=== PATIENT | female | born 1990 | race Caucasian/White ===

== ENCOUNTER 2019-03-08 13:37 | Observation (INO) ==
[2019-03-08] MEDS ORDERED: Isovue-370 500 ML BOTTLE IVP ONE (14:07)
[2019-03-08] MEDS ORDERED: Piperacillin/Tazobactam 3.375 GM in 0.9 % Sodium Chloride Mini Bag 100 ML IVPB ONE (14:08)
[2019-03-08] MEDS ORDERED: 0.9 % Sodium Chloride 1,000 ML IVC STA (14:10)
[2019-03-08 14:23] LABS: Basophils % 0.6 %; Eosinophils # 0.2 K/mcL (0.0-0.6); Eosinophils % 3.7 %; Hematocrit 36.3 % (35.3-44.9); Hemoglobin 10.8 g/dL (11.5-15.4); Immature Granulocytes % 0.2 % (0-4); Lymphocytes # 1.9 K/mcL (0.6-4.6); Mean Corpuscular HGB Conc 29.8 g/dL (31.6-35.5); Mean Corpuscular Hemoglobin 23.2 pg (28.0-33.3); Mean Corpuscular Volume 77.9 fL (83.0-100.0); Mean Platelet Volume 9.6 fL (9.4-12.4); Monocytes # 0.4 K/mcL (0.0-1.3); Monocytes % 7.8 %; Neutrophils # 2.4 K/mcL (1.6-8.9); Platelet Count 239 K/mcL (140-400); Red Blood Count 4.66 M/mcL (3.82-4.97); Red Cell Distribution Width 18.2 % (11.5-14.5); Segmented Neutrophils % 48.7 %; White Blood Count 4.9 K/mcL (4.3-11.1)
[2019-03-08 14:51] LABS: Alanine Aminotransferase 331 Units/L (7-52); Albumin 3.8 g/dL (3.5-5.7); Albumin/Globulin Ratio 1.5 (1.1-2.2); Alkaline Phosphatase 115 Units/L (34-104); Aspartate Amino Transferase 205 Units/L (13-39); BUN/Creatinine Ratio 15 (6-26); Bilirubin,Total 0.3 mg/dL (0.3-1.0); Blood Urea Nitrogen 13 mg/dL (6-20); C-Reactive Protein < 5 mg/L (Less than 10); Calcium 8.8 mg/dL (8.6-10.3); Carbon Dioxide 28 mEq/L (23-29); Chloride 106 mEq/L (98-107); Globulin 2.5 g/dL (2.4-3.5); Glucose 74 mg/dL (70-105); Osmolality,Calculated 287 (280-300); Potassium 3.6 mEq/L (3.5-5.1); Sodium 139 mEq/L (136-145); Total Protein 6.3 g/dL (6.4-8.9); eGFR For African Americans > 60 (> 60); eGFR For Non-African Americans > 60 (> 60)
[2019-03-08 16:20] LABS: Hepatitis B Surface Antigen Nonreactive (Nonreactive)
[2019-03-08 16:49] LABS: Hepatitis B Core IgM Nonreactive (Nonreactive)
[2019-03-08 16:50] LABS: Hepatitis C Virus Antibody Nonreactive (Nonreactive)
[2019-03-08 16:51] LABS: Hepatitis A Antibody IgM Nonreactive (Nonreactive)
[2019-03-08] MEDS ORDERED: *HR* OxyCODONE Immed Rel 5 MG TABLET PO PRN (17:08)
[2019-03-08] MEDS ORDERED: Ondansetron ODT 4 MG TAB.RAPDIS SL PRN (17:08)
[2019-03-08] MEDS ORDERED: Ibuprofen 400 MG TABLET PO PRN (17:08)
[2019-03-08] MEDS ORDERED: Naloxone 0.4 MG/ML INJ IVP PRN (17:08)
[2019-03-08] MEDS ORDERED: Td (TENIVAC) Vaccine 0.5 ML VIAL IM ONE (17:33)
[2019-03-08] MEDS ORDERED: *HR* Heparin 5,000 UNIT/ML VIAL SQ SCH (18:00)
[2019-03-08 20:18] VITALS: BP 126/82
[2019-03-08] MEDS ORDERED: Aminoglycoside Consult 1 EACH MC ONE (20:54)
[2019-03-09] MEDS ORDERED: Piperacillin/Tazobactam 3.375 GM in 0.9 % Sodium Chloride Mini Bag 100 ML IVPB SCH
[2019-03-09 02:32] LABS: HIV-1&2 Antibody & p24 Ag Nonreactive (Nonreactive)
[2019-03-09] MEDS ORDERED: Nicotine 21 MG PATCH.TD24 TD SCH (09:00)
== END 2019-03-08 20:55 | disposition left against medical advice (07) ==
LOC: EMEROOARM 13:37 → 3ANU 13:37
PROVIDERS: ADMIT Internal Medicine; ATTEND Internal Medicine

== ENCOUNTER 2019-03-16 21:09 | Observation (INO) ==
[2019-03-16 22:36] LABS: Basophils % 0.6 %; Eosinophils # 0.1 K/mcL (0.0-0.6); Eosinophils % 1.6 %; Hematocrit 37.1 % (35.3-44.9); Hemoglobin 11.7 g/dL (11.5-15.4); Immature Granulocytes % 0.2 % (0-4); Lymphocytes # 1.5 K/mcL (0.6-4.6); Lymphocytes % 28.7 %; Mean Corpuscular HGB Conc 31.5 g/dL (31.6-35.5); Mean Corpuscular Hemoglobin 23.4 pg (28.0-33.3); Mean Corpuscular Volume 74.2 fL (83.0-100.0); Mean Platelet Volume 9.2 fL (9.4-12.4); Monocytes # 0.5 K/mcL (0.0-1.3); Monocytes % 9.6 %; Neutrophils # 3.1 K/mcL (1.6-8.9); Platelet Count 249 K/mcL (140-400); Red Cell Distribution Width 18.6 % (11.5-14.5); Segmented Neutrophils % 59.3 %; White Blood Count 5.1 K/mcL (4.3-11.1)
[2019-03-16 22:57] LABS: Alanine Aminotransferase 359 Units/L (7-52); Albumin 3.7 g/dL (3.5-5.7); Albumin/Globulin Ratio 1.3 (1.1-2.2); Alkaline Phosphatase 166 Units/L (34-104); Aspartate Amino Transferase 158 Units/L (13-39); BUN/Creatinine Ratio 15 (6-26); Bilirubin,Direct 0.1 mg/dL (0.0-0.2); Bilirubin,Indirect 0.4 mg/dL (0.0-1.0); Bilirubin,Total 0.5 mg/dL (0.3-1.0); Blood Urea Nitrogen 14 mg/dL (6-20); C-Reactive Protein < 5 mg/L (Less than 10); Calcium 8.8 mg/dL (8.6-10.3); Carbon Dioxide 28 mEq/L (23-29); Chloride 106 mEq/L (98-107); Globulin 2.8 g/dL (2.4-3.5); Glucose 90 mg/dL (70-105); Osmolality,Calculated 288 (280-300); Potassium 4.2 mEq/L (3.5-5.1); Sodium 139 mEq/L (136-145); Total Protein 6.5 g/dL (6.4-8.9); eGFR For African Americans > 60 (> 60); eGFR For Non-African Americans > 60 (> 60)
[2019-03-16] MEDS ORDERED: 0.9 % Sodium Chloride 1,000 ML IVC ONE (23:38)
[2019-03-16] MEDS ORDERED: Piperacillin/Tazobactam 3.375 GM in 0.9 % Sodium Chloride Mini Bag 100 ML IVPB ONE (23:38)
[2019-03-17] MEDS ORDERED: Naloxone 0.4 MG/ML INJ IVP PRN (06:00)
[2019-03-17] MEDS ORDERED: Nicotine 2 MG GUM BC PRN (06:00)
[2019-03-17 07:20] LABS: Basophils % 0.8 %; Eosinophils # 0.1 K/mcL (0.0-0.6); Eosinophils % 2.7 %; Hematocrit 33.9 % (35.3-44.9); Hemoglobin 10.7 g/dL (11.5-15.4); Immature Granulocytes % 0.2 % (0-4); Lymphocytes # 1.7 K/mcL (0.6-4.6); Lymphocytes % 34.5 %; Mean Corpuscular HGB Conc 31.6 g/dL (31.6-35.5); Mean Corpuscular Hemoglobin 23.5 pg (28.0-33.3); Mean Corpuscular Volume 74.3 fL (83.0-100.0); Mean Platelet Volume 9.5 fL (9.4-12.4); Monocytes # 0.4 K/mcL (0.0-1.3); Monocytes % 8.6 %; Neutrophils # 2.6 K/mcL (1.6-8.9); Platelet Count 229 K/mcL (140-400); Red Blood Count 4.56 M/mcL (3.82-4.97); Red Cell Distribution Width 18.4 % (11.5-14.5); Segmented Neutrophils % 53.2 %; White Blood Count 4.9 K/mcL (4.3-11.1)
[2019-03-17 07:31] LABS: Prothrombin Time 11.9 Seconds (9.4-12.1)
[2019-03-17 07:41] LABS: % Iron Saturation 5 % (15-50); Alanine Aminotransferase 304 Units/L (7-52); Albumin 3.3 g/dL (3.5-5.7); Albumin/Globulin Ratio 1.4 (1.1-2.2); Alkaline Phosphatase 139 Units/L (34-104); Aspartate Amino Transferase 146 Units/L (13-39); BUN/Creatinine Ratio 18 (6-26); Bilirubin,Total 0.5 mg/dL (0.3-1.0); Blood Urea Nitrogen 14 mg/dL (6-20); Carbon Dioxide 24 mEq/L (23-29); Chloride 108 mEq/L (98-107); Globulin 2.4 g/dL (2.4-3.5); Glucose 100 mg/dL (70-105); Iron 24 mcg/dL (50-170); Magnesium 1.9 mg/dL (1.6-2.6); Osmolality,Calculated 291 (280-300); Phosphorous 3.7 mg/dL (2.7-4.5); Potassium 4.2 mEq/L (3.5-5.1); Sodium 140 mEq/L (136-145); Total Protein 5.7 g/dL (6.4-8.9); Transferrin 361 mg/dL (203-362); eGFR For African Americans > 60 (> 60); eGFR For Non-African Americans > 60 (> 60)
[2019-03-17] MEDS: Piperacillin/Tazobactam 3.375 GM in 0.9 % Sodium Chloride Mini Bag 100 ML IVP SCH ×3 (07:47→23:22)
[2019-03-17 07:57] LABS: Ferritin 9 ng/mL (10-120)
[2019-03-17] MEDS: Nicotine 14 MG PATCH.TD24 TD SCH (09:20)
[2019-03-17] MEDS ORDERED: Ketorolac 15 MG/ML VIAL IVP PRN ×2 (10:05→10:54)
[2019-03-17] MEDS ORDERED: Acetaminophen 325 MG TABLET PO PRN (10:53)
[2019-03-17] MEDS ORDERED: *HR* HYDROcodone/Acet 10/325 mg TABLET PO PRN (10:54)
[2019-03-17] MEDS ORDERED: Sennosides/Docusate Sodium TABLET PO PRN (11:20)
[2019-03-17 12:37] LABS: Amphetamine Screen,Urine Positive ng/mL (Cutoff=1000); Barbiturate Screen,Urine Negative ng/mL (Cutoff=200); Benzodiazepines Screen,Urine Negative ng/mL (Cutoff=200); Cannabinoid Screen,Urine Negative ng/mL (Cutoff = 50); Cocaine Screen,Urine Negative ng/mL (Cutoff= 300); Opiate Screen,Urine Negative ng/mL (Cutoff=300); Phencyclidine Screen,Urine Negative ng/mL (Cutoff=25)
[2019-03-17] MEDS ORDERED: *HR* OxyCODONE/APAP 10/325 TABLET PO PRN (14:37)
[2019-03-17] MEDS: Ketorolac 15 MG/ML VIAL IVP SCH ×3 (18:08→23:22)
[2019-03-17] MEDS: Ondansetron 4 MG/2 ML VIAL IVP PRN (20:11)
[2019-03-18] MEDS: *HR* Heparin 5,000 UNIT/ML VIAL SQ SCH ×2 (04:57→17:48)
[2019-03-18] MEDS: Ketorolac 15 MG/ML VIAL IVP SCH ×3 (07:09→17:49)
[2019-03-18 07:15] LABS: Basophils # 0.1 K/mcL (0.0-0.2); Eosinophils # 0.2 K/mcL (0.0-0.6); Eosinophils % 3.7 %; Hematocrit 35.5 % (35.3-44.9); Hemoglobin 10.6 g/dL (11.5-15.4); Lymphocytes # 2.4 K/mcL (0.6-4.6); Lymphocytes % 49.3 %; Mean Corpuscular HGB Conc 29.9 g/dL (31.6-35.5); Mean Corpuscular Hemoglobin 23.1 pg (28.0-33.3); Mean Corpuscular Volume 77.5 fL (83.0-100.0); Mean Platelet Volume 9.9 fL (9.4-12.4); Monocytes # 0.4 K/mcL (0.0-1.3); Monocytes % 8.6 %; Neutrophils # 1.8 K/mcL (1.6-8.9); Platelet Count 225 K/mcL (140-400); Red Blood Count 4.58 M/mcL (3.82-4.97); Red Cell Distribution Width 18.4 % (11.5-14.5); Segmented Neutrophils % 37.4 %; White Blood Count 4.9 K/mcL (4.3-11.1)
[2019-03-18 07:37] LABS: Alanine Aminotransferase 261 Units/L (7-52); Albumin 3.2 g/dL (3.5-5.7); Albumin/Globulin Ratio 1.5 (1.1-2.2); Alkaline Phosphatase 127 Units/L (34-104); Aspartate Amino Transferase 122 Units/L (13-39); BUN/Creatinine Ratio 16 (6-26); Bilirubin,Total 0.3 mg/dL (0.3-1.0); Blood Urea Nitrogen 14 mg/dL (6-20); Calcium 7.9 mg/dL (8.6-10.3); Carbon Dioxide 25 mEq/L (23-29); Chloride 107 mEq/L (98-107); Chol/HDL Ratio 2.6 (0-4.9); Cholesterol 127 mg/dL (< 200); Globulin 2.2 g/dL (2.4-3.5); Glucose 95 mg/dL (70-105); HDL Cholesterol 48 mg/dL (40-59); LDL Cholesterol,Calculated 70 mg/dL (0-99); Osmolality,Calculated 284 (280-300); Potassium 4.1 mEq/L (3.5-5.1); Sodium 137 mEq/L (136-145); Total Protein 5.4 g/dL (6.4-8.9); Triglycerides 47 mg/dL (< 150); eGFR For African Americans > 60 (> 60); eGFR For Non-African Americans > 60 (> 60)
[2019-03-18] MEDS: Nicotine 14 MG PATCH.TD24 TD SCH (07:52)
[2019-03-18 08:00] LABS: Hepatitis B Surface Antigen Nonreactive (Nonreactive)
[2019-03-18 08:29] LABS: Hepatitis B Core IgM Nonreactive (Nonreactive)
[2019-03-18 08:31] LABS: Hepatitis A Antibody IgM Nonreactive (Nonreactive)
[2019-03-18] MEDS: Piperacillin/Tazobactam 3.375 GM in 0.9 % Sodium Chloride Mini Bag 100 ML IVP SCH ×2 (08:58→16:39)
[2019-03-18] MEDS: Ondansetron 4 MG/2 ML VIAL IVP PRN (09:45)
[2019-03-18 10:05] LABS: Hepatitis C Virus Antibody Reactive (Nonreactive)
[2019-03-18] MEDS ORDERED: Bupivacaine/Clonidine Syringe 20 ML, Syringe LUER-LOK 1 EACH TP ONE (10:05)
[2019-03-18] MEDS ORDERED: *HR* Promethazine 25 MG/ML VIAL IVP PRN (10:12)
[2019-03-18] MEDS ORDERED: Propofol 500 MG/50 ML INFUS..BTL ONE (10:25)
[2019-03-18] MEDS ORDERED: Lidocaine -MPF 2% 2 ML VIAL ONE (10:25)
[2019-03-18] MEDS ORDERED: *HR* Propofol 200 MG/20 ML VIAL IVP ONE (10:25)
[2019-03-18 16:11] VITALS: BP 109/65
[2019-03-18] MEDS ORDERED: Aminoglycoside Consult 1 EACH MC ONE (19:03)
== END 2019-03-18 19:04 | disposition left against medical advice (07) ==
LOC: EMEROOARM 21:09 → 3NENU 21:09 → SUATTDRO 03-17 02:47 → 3NENU 03-17 04:38
PROVIDERS: ADMIT Internal Medicine; ATTEND Internal Medicine